=== PATIENT | female | born 1970 | race Caucasian/White ===

== ENCOUNTER 2025-01-30 06:05 | Day surgery (SDC) | payer BC ==
[2025-01-30] MEDS ORDERED: Lactated Ringers 1,000 ML IV ONE (06:18)
[2025-01-30] MEDS: Lactated Ringers 1,000 ML IV SCH (06:26)
[2025-01-30] MEDS ORDERED: propofoL IV ONE ×3 (07:25→07:56)
[2025-01-30] MEDS ORDERED: Xylocaine-Mpf 2% 5 Ml Vial ONE (07:25)
[2025-01-30] MEDS ORDERED: DUONEB 0.5-3 MG/3 ml Neb IH ONE (08:11)
[2025-01-30] MEDS: DUONEB 0.5-3 MG/3 ml Neb IH ONE (08:24)
[2025-01-30 08:39] VITALS: RESP 16; O2SAT 96
[2025-01-30 08:50] VITALS: BP 127/71; PULSE 76; TEMP 98
--- NOTE | 2025-01-31 12:23 | OP ---
SURGERY DATE/TIME: 01/30/2025 07:27 - 08:04 PREOPERATIVE DIAGNOSIS: Screening exam. POSTOPERATIVE DIAGNOSIS: Diverticulosis and small polyp in the sigmoid colon. PROCEDURE: Colonoscopy with cold forceps biopsy. SURGEON: Abner Levine MD ANESTHESIA: Medication given by the anesthesia department. INDICATIONS: The patient is a 54-year-old white female presenting now for screening colonoscopy. The patient was apprised of the risks of the procedure including risks of perforation, phlebitis, untoward reaction to medication, bleeding, and missed lesions. The patient verbalized her understanding and desired to have procedure performed. DESCRIPTION OF PROCEDURE AND FINDINGS: The patient was given medication by the anesthesia department. She had continuous pulse oximetry, ECG monitoring, and intermittent blood pressure monitoring during the examination. She was placed in left lateral decubitus position. Digital rectal examination was performed and revealed normal anal sphincter tone and no masses. Flexible Olympus colonoscope was used to intubate the rectum. A view of the colon was developed sequentially to the cecum. Upon insertion and withdrawal including retroflexed view in the rectum, there was noted scattered diverticula. There was also noted to be a hyperemic area in the sigmoid colon. This was biopsied to be sure there was no adenomatous change. No other mucosal lesions being noted, the scope was removed. The patient tolerated the procedure well and sent back to outpatient recovery in good condition. The prep was noted to be fair.
== END 2025-01-30 08:53 | disposition home or self-care (01) ==
LOC: SDC 06:05
PROVIDERS: ATTEND Family Medicine
DX: Z12.11 Encounter for screening for malignant neoplasm of colon (principal); K57.30 Diverticulosis of large intestine without perforation or abscess without bleeding; K63.5 Polyp of colon
CPT/HCPCS: 94640; J2704; A9270-GY

== ENCOUNTER 2025-08-06 15:50 | Emergency (ER) | payer BC ==
[2025-08-06 16:29] VITALS: RESP 18; TEMP 98.1; O2SAT 99
[2025-08-06 17:07] LABS: Glucose, Urine Negative (Negative); Protein,Urine Dip 30 (Negative)
[2025-08-06 17:08] LABS: BASOPHIL % 0.6 % (0.1-1.2); Basophil (Absolute #) 0.04 x10^3/uL (0.01-0.08); Eosinophil (Absolute #) 0.05 x10^3/uL (0.04-0.36); Hematocrit 39.2 % (34.1-44.9); Hemoglobin 12.7 g/dL (11.2-15.7); IMMATURE GRAN # 0.01 x10^3u/L (0.001-0.031); IMMATURE GRAN % 0.2 % (0.001-0.429); Lymphocyte (Absolute #) 1.49 x10^3/uL (1.18-3.74); Mean Corpuscular Hemoglobin 33.1 pg (25.6-32.2); Mean Corpuscular Hgb Concent. 32.4 g/dL (32.2-35.5); Monocyte (Absolute #) 0.47 x10^3/uL (0.24-0.86); NUCLEATED RBC # 0.00 x10^3u/L (0.00-0.012); NUCLEATED RBC % 0.0 % (0.00-0.2); Platelet Count 153 x10^3/uL (182-369); Red Blood Count 3.84 x10^6/uL (3.93-5.22); White Blood Count 6.2 x10^3/uL (3.98-10.04)
[2025-08-06 17:19] LABS: Calcium 8.2 mg/dL (8.4-10.2); Carbon Dioxide 27.0 mmol/L (22-30); Creatinine 1 0.63 mg/dL (0.52-1.04); EST GLOMERULAR FILTRATION RATE 106.7 ML/MIN; Glucose 164.0 mg/dL (74-106); Potassium 3.1 mmol/L (3.5-5.1); SGOT/AST 93.0 U/L (14-36); SGPT/ALT 32.0 U/L (0-35); Total Protein 6.9 g/dL (6.3-8.2)
[2025-08-06 17:38] VITALS: BP 119/72; PULSE 92
--- NOTE | 2025-08-06 17:38 | ERPHSYRPT ---
- History of Present Illness Patient Subjective Stated Complaint: last night patient noticed blood in urine and feces, states large amount of bright red blood, patient states she is nauseous, patient also states that she has an ulcer and found out about the ulcer at [facility] about a month ago, patient states she has not had any alcoholic drinks for about a month now, panreatitis, and start of kidney and liver failure Triage Nursing Assessment: patient presents to ed via private vehicle, patient able to ambulate into ed without complication, patient alert and oriented x 4, skin p/w/d, patient denies sob/chest pain, patient has complaints of abdominal discomfort, abodmen firm/round/distended, bowel sounds active x 4 quadrants, abdomen tender to all areas upon palpation, patient noted to have hematuria Physician History: Rectal bleeding and hematuria, Onset of symptoms yesterday, She has been straining to have a bowel movement, she normally is constipated, she takes stool softener she cannot control her bowels, she denied any nausea or vomiting, she denied having abdominal pain, she was told that she has liver failure and kidney failure, This was after her last admission at [place], since then she has stopped drinking alcohol Timing/Duration: yesterday Severity: moderate Allergies/Adverse Reactions: codeine Adverse Reaction (Verified 08/06/25 16:21) vomitting Home Medications: Esomeprazole Magnesium [Nexium 24Hr] 20 mg PO BID 08/06/25 [History] Travel Risk - International Travel Have you traveled outside of the country in past 3 weeks: No - Emerging Infectious Disease Are you exhibiting symptoms associated with any current EIDs: No - Past Medical History Pertinent Past Medical History: No Other Medical History: last period 10 years ago - Past Surgical History Past Surgical History: Yes Neuro Surgical History: No Pertinent History Cardiac: No Pertinent History Respiratory: No Pertinent History Gastrointestinal: Hernia Repair Genitourinary: No Pertinent History Musculoskeletal: No Pertinent History Female Surgical History: No Pertinent History - Female History Hx Now: No - Social History Smoking Status: Current every day smoker Exposure to second hand smoke: Yes Drug Use: none - Social Determinants of Health Will the patient participate in the screening: Yes Do you worry about a steady place to live?: No Do you have any problems with any of the following?: No known problems In the past 12 months,have you had to go without utilities?: No Transportation Issues: No Has anyone in your support network made you feel unsafe?: No Have you or anyone in your house had to go w/o enough food: No - Nursing Vital Signs Nursing Vital Signs: Initial Vital Signs Temperature 98.1 F 08/06/25 15:51 Pulse Rate 93 H 08/06/25 15:51 Respiratory Rate 18 08/06/25 15:51 Blood Pressure 113/90 08/06/25 15:51 O2 Sat by Pulse Oximetry 99 08/06/25 15:51 Pain Scale Pain Intensity 5 - Physical Exam General Appearance: no apparent distress, alert, obese Eye Exam: PERRL/EOMI, eyes nml inspection Ears, Nose, Throat Exam: normal ENT inspection, TMs normal, pharynx normal, moist mucous membranes Neck Exam: normal inspection, non-tender, supple, full range of motion Respiratory Exam: normal breath sounds, lungs clear, No respiratory distress Cardiovascular Exam: regular rate/rhythm, normal heart sounds, normal peripheral pulses Gastrointestinal/Abdomen Exam: soft, normal bowel sounds, No tenderness, No mass Back Exam: normal inspection, normal range of motion, No CVA tenderness, No vertebral tenderness Extremity Exam: normal inspection, normal range of motion, pelvis stable Neurologic Exam: alert, oriented x 3, cooperative, normal mood/affect, nml cerebellar function, nml station & gait, sensation nml, No motor deficits Skin Exam: normal color, warm, dry, No rash Lymphatic Exam: No adenopathy SpO2 Interpretation: normal SpO2: 99 - CT Exams Abdomen/Pelvis CT Interpretation: Other (No acute processes interpreted by me) Ordered Tests: Active Orders 24 hr Category Date Time Status IV Insertion STAT Care 08/06/25 16:45 Active ABDOMEN AND PELVIS W/0 CONTRAS [CT] Stat Exams 08/06/25 16:46 Taken CBC W DIFF Stat Lab 08/06/25 17:05 Completed CMP Stat Lab 08/06/25 17:05 Completed LIPASE Stat Lab 08/06/25 17:05 Completed UA W/RFX UR CULTURE Stat Lab 08/06/25 16:55 Completed Lab/Rad Data: Laboratory Result Diagrams 08/06/25 17:05 08/06/25 17:05 Laboratory Results 08/06/25 08/06/25 08/06/25 Range/Units 17:05 17:05 16:55 WBC 6.2 (3.98-10.04) x10^3/uL RBC 3.84 L (3.93-5.22) x10^6/uL Hgb 12.7 (11.2-15.7) g/dL Hct 39.2 (34.1-44.9) % MCV 102.1 H (79.4-94.8) fL MCH 33.1 H (25.6-32.2) pg MCHC 32.4 (32.2-35.5) g/dL RDW 14.2 (11.7-14.4) % Plt Count 153 L (182-369) x10^3/uL MPV 11.7 (9.4-12.3) fL Gran % 67.0 (34.0-71.1) % Immature Gran % (Auto) 0.2 (0.001-0.429) % Nucleat RBC Rel Count 0.0 (0.00-0.2) % Eos # (Auto) 0.05 (0.04-0.36) x10^3/uL Immature Gran # (Auto) 0.01 (0.001-0.031) x10^3u/L Absolute Lymphs (auto) 1.49 (1.18-3.74) x10^3/uL Absolute Monos (auto) 0.47 (0.24-0.86) x10^3/uL Absolute Nucleated RBC 0.00 (0.00-0.012) x10^3u/L Lymphocytes % 23.9 (19.3-51.7) % Monocytes % 7.5 (4.7-12.5) % Eosinophils % 0.8 (0.7-5.8) % Basophils % 0.6 (0.1-1.2) % Absolute Granulocytes 4.17 (1.56-6.13) x10^3/uL Basophils # 0.04 (0.01-0.08) x10^3/uL Sodium 138 (135-145) mmol/L Potassium 3.1 L (3.5-5.1) mmol/L Chloride 104 (98-107) mmol/L Carbon Dioxide 27 (22-30) mmol/L Anion Gap 9.8 (5-15) MEQ/L BUN 7 (7-17) mg/dL Creatinine 0.63 (0.52-1.04) mg/dL Estimated GFR 106.7 ML/MIN Glucose 164 H (74-106) mg/dL Calcium 8.2 L (8.4-10.2) mg/dL Total Bilirubin 1.50 H (0.2-1.3) mg/dL AST 93 H (14-36) U/L ALT 32 (0-35) U/L Alkaline Phosphatase 187 H (38-126) U/L Serum Total Protein 6.9 (6.3-8.2) g/dL Albumin 3.5 (3.5-5.0) g/dL Lipase 184 (23-300) U/L Urine Color Crum A (Yellow) Urine Appearance Clear (Clear) Urine pH 6.0 (4.6-8.0) Ur Specific [place] 1.025 (1.005-1.030) Urine Protein 30 (Negative) Urine Glucose (UA) Negative (Negative) mg/dL Urine Ketones Trace A (Negative) Urine Blood Moderate A (Negative) Urine Nitrite COLOR INTERFERANCE (Negative) Urine Bilirubin Small A (Negative) Urine Urobilinogen 1.0 A (0.2) mg/dL Ur Leukocyte Esterase Trace A (Negative) U Hyaline Cast (Auto) NONE SEEN (0-2) /LPF Urine Microscopic RBC 6-10 A (0-5) /HPF Urine Microscopic WBC 3-5 (0-5) /HPF Ur Epithelial Cells Few (None Seen) /HPF Urine Bacteria None Seen (None Seen) /HPF Urine Culture Reflexed NO (NO) - Progress Progress Note: 08/06/25 17:[address] and lab results, recommend outpatient follow-up and treatment, Her colonoscopy from January was reviewed by me - Departure Departure Disposition: Home Clinical Impression: Rectal bleeding Condition: Stable Critical Care Time: No Referrals: GERMAN ROGERS MD [Primary Care Provider, [facility]] - Follow up with PCP 4 days Instructions: Bloody stools in adults - ED discharge instructions, Constipation in adults - ED discharge instructions Additional Instructions: Clear liquid diet for the next 24 hours, increase fiber in your diet, talk to primary care doctor next week
--- NOTE | 2025-08-06 18:41 | XRAY ---
CLINICAL HISTORY: rectal bleeding COMPARISON: No prior studies available for comparison. TECHNIQUE: Non-contrast CT of the abdomen and pelvis was performed with the following protocol: axial images, and reconstructed coronal and sagittal images. No intravenous contrast was administered. One of the following dose reduction techniques was utilized for this exam: automated exposure control, adjustment of the mA and/or kV according to patient size, and use of iterative reconstruction. FINDINGS: Abdomen: Liver: Fatty infiltration of the liver with hepatomegaly is noted. Minimal perihepatic free fluid is noted. No focal lesions, cysts, or masses are identified. Gallbladder and Biliary System: The gallbladder is normal in size and shape. No wall thickening, pericholecystic fluid, or gallstones are identified. Pancreas: The pancreatic head, body, and tail are visualized and appear normal in size and density. No pancreatic masses or calcifications are noted. Spleen: The spleen is normal in size, shape, and density. No splenic lesions or masses are identified. Kidneys and Adrenal Glands: Both kidneys are normal in size, shape, and position. Cortical thickness is within normal limits. No renal calculi or hydronephrosis are present. The adrenal glands are unremarkable. Appendix: The appendix is normal in size, without periappendiceal fat stranding and without an appendicolith. There is no evidence of appendiceal abscess or perforation. Pelvis: Urinary bladder: The urinary bladder is normal in contour and wall thickness. No intraluminal lesions are seen. Uterus: The uterus is normal in size and contour. No masses or abnormal thickening are noted. Ovaries: The ovaries are not well visualized, but no gross abnormalities are noted. Peritoneal and Retroperitoneal Structures: A mild amount of free fluid is noted at the perihepatic region. Nonspecific fat stranding is noted at the right anterior pararenal region. No lymphadenopathy is noted. Metallic foci at the anterior abdominal wall are present due to previous hernia surgery. Bowel: A few prominent proximal jejunal bowel loops measuring approximately 3.6 cm in diameter are noted, yet there is no air-fluid level inside. There is fat stranding at the anterior right pararenal region in close relation to some of the dilated jejunal loops and in close relation to the third part of the duodenum. These findings could represent enteritis and duodenitis; however, the possibility of ongoing small bowel obstruction cannot be totally ruled out. Non-complicated diverticular disease is noted. Non-specific submucosal fibrofatty infiltration of the large bowel is noted. Bones and Soft Tissues: The pelvic bones and soft tissues are unremarkable. No fractures or abnormal masses are identified. IMPRESSION: 1. A few prominent proximal jejunal bowel loops measuring approximately 3.6 cm in diameter are noted, yet there is no air-fluid level inside. There is fat stranding at the anterior right pararenal region in close relation to some of the dilated jejunal loops and in close relation to the third part of the duodenum. These findings could represent enteritis and duodenitis; however, the possibility of ongoing small bowel obstruction cannot be totally ruled out. Further clinical assessment and CT with IV contrast is advised if indicated. 2. A mild amount of free fluid is noted at the perihepatic region. 3. Non-complicated diverticular disease is noted. 4. Fatty infiltration of the liver with hepatomegaly is noted. Electronically Signed by: Mohamud Fleming MD. (08/06/2025 18:39:51 EST)
== END 2025-08-06 17:47 | disposition home or self-care (01) ==
LOC: ED 15:50
DX: K62.5 Hemorrhage of anus and rectum (principal); R31.9 Hematuria, unspecified; Z79.899 Other long term (current) drug therapy; Z72.0 Tobacco use